=== PATIENT | female | born 2000 | race Caucasian/White ===

== ENCOUNTER 2022-09-29 10:56 | Day surgery (SDC) | payer MEDICAID ==
[~2022-09-29] VITALS: Ht 170.2 cm; Wt 50.9 kg
[2022-09-29 11:10] VITALS: BP 136/86
[2022-09-29] MEDS ORDERED: MIRT-116 PO (11:49)
[2022-09-29] MEDS ORDERED: OMEP20CA16 PO (11:50)
[2022-09-29] MEDS ORDERED: ONDA-103 PO (11:50)
[2022-09-29] MEDS ORDERED: NORE1TAB22 (11:51)
[2022-09-29] MEDS ORDERED: TRIA15CR61 TOP (11:52)
[2022-09-29] MEDS ORDERED: ALBU0.63 NEB (11:53)
[2022-09-29] MEDS ORDERED: fentaNYL/PF 50MCG/1 ML 2ML syringe ONE (12:18)
[2022-09-29] MEDS ORDERED: MIDAZolam 1 MG/ML 5ML VIAL ONE (12:18)
[2022-09-29] MEDS ORDERED: LIDOcaine Viscous 15ml cup ONE (12:19)
[2022-09-29] MEDS ORDERED: ondansetron/PF 4mg/2ml inj ONE (12:48)
[2022-09-29] MEDS ORDERED: diphenhydrAMINE 50 mg/ml inj ONE (12:57)
[2022-09-29 13:10] VITALS: BP 104/97
[2022-09-29 13:20] VITALS: BP 107/57
[2022-09-29 13:30] VITALS: BP 103/63
[2022-09-29 13:40] VITALS: BP 101/67
== END 2022-09-29 13:42 | disposition home or self-care (01) ==
LOC: GI LAB 10:56
PROVIDERS: ATTEND Internal Medicine Gastroenterology
DX: K44.9 Diaphragmatic hernia without obstruction or gangrene (principal); J45.909 Unspecified asthma, uncomplicated
CPT/HCPCS: 43235; 99152; J1200; J2250; J2405; J3010; J7030; Z7512; A4620